=== PATIENT | female | born 1975 | race Caucasian/White ===

== ENCOUNTER 2021-09-26 07:27 | Day surgery (SDC) | payer BC ==
[~2021-09-26] VITALS: Ht 172.7 cm; Wt 95.0 kg
[~2021-09-26 07:27] MED LIST: CHOL10008 PO; MONT10TA49 PO; ROCURONIUM 50 MG/5 ML VIAL. ONE
[2021-09-26 07:52] VITALS: BP 141/71
[2021-09-26] MEDS ORDERED: IV RINGERS,LACTATED 1000ML 1,000 ML IV SCH ×2 (08:00→11:15)
[2021-09-26] MEDS ORDERED: OXYC1TAB15 PO (08:43)
--- NOTE | 2021-09-26 08:44 | DISCH ---
DISCHARGE INSTRUCTIONS Condition on Discharge Condition on Discharge: Stable Activity After Discharge Activity Instructions for Disc: Other ROM activity Other activity instructions: arm to remain in sling Bathing Instructions: Shower-keep dressing dry Weight Bearing Status after Di: Non weight bearing Diet after Discharge Diet after Discharge: Regular Wound Incision Care Wound/Incision Care: Ice to area for comfort, Keep wound/cast CDI, Change dressing Other wound/incision instructi: change dressing in [address] after DC Call your doctor for: Concerns you may have Follow-Up Follow up with: Santana in 2wks Treatment/Equipment after DC Adaptive Equipment Issued: None FREDERICK HECTOR II, MD Sep 26, 2021 08:44
--- NOTE | 2021-09-26 08:46 | PDOC4 ---
Operative Note Operative Note Date of procedure: 09/26/21 Surgeon: Greg Hector Bowl Turner: Lee Ivan, certified medical technician assistant; was necessary to help position the patient, assist with draping, manipulation of the arthroscopic camera and wound closure. Preoperative diagnosis: left shoulder rotator cuff tear Postoperative diagnosis: same Procedure performed: Arthroscopic left shoulder rotator cuff repair Anesthesia: Gen. plus regional nerve block Findings: #1 Intact glenohumeral cartilage Labrum intact and unremarkable Biceps tendon unremarkable No loose bodies Rotator cuff tendon, at the anterior supraspinatus showed some thinning and had a pathologic interstitial tear remainder of rotator cuff intact Blood loss: 5mL Components inserted: [employer] Helacoil anchor Reason for procedure: Patient is a very pleasant woman who has had worsening left shoulder pain. Clinical and radiographic examination, including MRI were consistent with the preoperative diagnosis. She had tried physical therapy, anti-inflammatories, and had not had any improvement. She had undergone a succes sful right-sided rotator cuff repair several years ago and wished to proceed with that. Due to her symptoms and dysfunction, we had a discussion of the risks, benefits, alternatives the above surgery and she wished to proceed. Description of procedure: Patient was greeted in the preoperative holding area where the correct extremity was verified and marked. They were taken to the p reoperative holding area where the anesthesiology team placed a regional nerve block. The patient was then taken back to the operative suite and antibiotics were started as they were brought back. Once in the operative room, the patient was transferred gently supine to the operating room table after successful induction of a general anesthetic. After this, she was sat up in a beachchair position maintaining her C-spine in neutral position, large pad under her legs, she was secured to the bed. We then prepped and draped her left upper extremity and shoulder girdle in our usual sterile fashion, we conducted our standard preoperative timeout. I palpated and marked surface anatomy for my planned portal sites. I then used a spinal needle to localize a posterior superior portal and incised skin in accordance with this. After this, I introduced the blunt arthroscopic trocar into the glenohumeral joint followed by the camera. I used a spinal needle to localize an anterosuperior portal and incised skin in accordance with this. I then introduced my arthroscopic probe and conducted my diagnostic arthroscopy with the above-noted findings. I then used a spinal needle to shuttle a PDS through as a marking stitch at the area of concern After this, I repositioned the camera into the subacromial space and performed a bursectomy with combination of shaver and electrocautery device. I then identified the rotator cuff tear and I debrided the pathologic tendon and prepared my footprint. I then placed my helacoil anchor and shuttled limbs through in a simple configuration. I tied these down with arthroscopic knot- tying techniques. The tear was stable to probing and to gentle rotation of the arm. I then removed all loose bony debris and the excess arthroscopic fluid. I took my final pictures prior to this. After this, all the excess fluid and instrumentation was removed. The portals were closed with simple interrupted 3-0 nylon. Sterile dressing was applied followed by an abduction pillow sling. Patient tolerated surgery well. No complications. At the conclusion, she was laid supine and transferred gently supine to the recovery room cart and taken to the PACU in a stable and extubated condition. Postoperative plan is discharge her home, nonweightbearing for 6 weeks. Well get her started on physical therapy. She will follow up with me in 2 weeks, sooner should a problem arise. GREG HECTOR II, MD Sep 26, 2021 08:46
[2021-09-26] MEDS ORDERED: MIDAZOLAM HCL/PF 2 MG/2 ML VIAL. ONE (08:49)
[2021-09-26] MEDS ORDERED: ROPIVacaine 0.5% PF 20 ML VIAL. ONE (08:49)
[2021-09-26] MEDS ORDERED: LIDOCAINE 1% PF 30 ML VIAL. ONE (08:53)
[2021-09-26] MEDS ORDERED: EPINEPHrine VIAL 30 MG/30 ML VIAL ONE (08:53)
[2021-09-26] MEDS ORDERED: BUPIVACAINE MPF 0.5% 30 ML VIAL. ONE (08:53)
[2021-09-26] MEDS ORDERED: LIDOCAINE 1% PF 5 ML VIAL. ONE (09:48)
[2021-09-26] MEDS ORDERED: ONDANSETRON PF 4 MG/2 ML VIAL. ONE (09:48)
[2021-09-26] MEDS ORDERED: DEXAMETHASONE SOD PHOS 4 MG/ML VIAL ONE (09:48)
[2021-09-26] MEDS ORDERED: PROPOFOL 10 MG/ML (20ML) VIAL. IV ONE (09:48)
[2021-09-26] MEDS ORDERED: GLYCOPYRROLATE 1 MG/5 ML VIAL. ONE (09:49)
[2021-09-26] MEDS ORDERED: SUGAMMADEX SODIUM 200 MG/2 ML VIAL. IVP ONE (10:30)
[2021-09-26] MEDS ORDERED: PROCHLORPERAZINE 10 MG/2 ML VIAL. IVP PRN (11:15)
[2021-09-26] MEDS ORDERED: MORPHINE SULFATE 2 MG/ML INJ. IVP PRN (11:15)
[2021-09-26] MEDS ORDERED: HYDROmorphone 2 MG/ML INJ. IVP PRN (11:15)
[2021-09-26] MEDS ORDERED: fentaNYL PF VIAL 100 MCG/2 ML VIAL IVP PRN ×2 (11:15)
[2021-09-26] MEDS ORDERED: oxyCODONE/APAP 5/325 1 TAB TABLET PO ONE (11:30)
[2021-09-26 11:55] VITALS: BP 164/75
== END 2021-09-26 12:30 | disposition home or self-care (01) ==
LOC: SURG 07:27
PROVIDERS: ATTEND Orthopaedic Surgery Sports Medicine
PROC: 0LM24ZZ Reattachment of Left Shoulder Tendon, Percutaneous Endoscopic Approach (ICD-10-PCS; principal; 2021-09-26 09:15)
DX: M75.102 Unspecified rotator cuff tear or rupture of left shoulder, not specified as traumatic (principal); K21.9 Gastro-esophageal reflux disease without esophagitis; Z87.891 Personal history of nicotine dependence; Z79.899 Other long term (current) drug therapy; Z98.890 Other specified postprocedural states
CPT/HCPCS: 29827; 64415; 81025; A4355; A4565; A4928; A4930; A6253; C1713; J0171; J0690; J1100; J2250; J2405; J2704; J2795; J3490; A4452; A6454